=== PATIENT | female | born 1990 | race Caucasian/White ===

== ENCOUNTER 2019-07-27 13:33 | Outpatient (CLI) | payer MEDICAID ==
[~2019-07-27] VITALS: Ht 152.4 cm; Wt 81.8 kg
[~2019-07-27 13:33] MED LIST: FOLI0.4T2 PO; PREN-6 PO
[2019-07-27 14:41] VITALS: Ht 152.4 cm; Wt 81.8 kg
[2019-07-27 14:42] VITALS: BP 127/78; RESP 20
== END 2019-07-27 19:15 | disposition home or self-care (01) ==
LOC: L-D 13:33 → OBT 13:33 → L-D 14:07 → OBT 19:15
PROVIDERS: ATTEND Obstetrics & Gynecology
DX: O62.9 Abnormality of forces of labor, unspecified (principal); Z3A.36 36 weeks gestation of pregnancy
CPT/HCPCS: 36415; 93970; Z7500; G0463

== ENCOUNTER 2019-08-01 03:01 | Inpatient (IN) | payer MEDICAID ==
[2019-08-01] VITALS (8 sets, daily range): BP systolic 103–125; BP diastolic 57–75; PULSE 70–84; RESP 16–19
[~2019-08-01] VITALS: Ht 157.5 cm; Wt 85.6 kg
[2019-08-01] MEDS: LACTATED RINGER'S 1,000 ML IV SCH ×3 (04:23→21:24)
[2019-08-01] MEDS ORDERED: OXYTOCIN 30 UNITS/LR 500 ML IV PRN ×2 (04:30→09:30)
[2019-08-01] MEDS ORDERED: OXYTOCIN 30 UNITS/LR 500 ML IV SCH ×2 (04:30→09:28)
[2019-08-01] MEDS ORDERED: CEFAZOLIN 2 GM/50 ML (PMX) 50 ML IVPB SCH (04:30)
[2019-08-01] MEDS ORDERED: CARBOPROST 250 MCG INJ IM PRN ×2 (04:30→09:30)
[2019-08-01] MEDS ORDERED: MISOPROSTOL 200 MCG TAB PR PRN ×2 (04:30→09:30)
[2019-08-01] MEDS ORDERED: TERBUTALINE 1 MG/ML INJ SC ONE (04:30)
[2019-08-01] MEDS ORDERED: METHYLERGONOVINE 0.2 MG INJ IM PRN ×2 (04:30→09:30)
[2019-08-01] MEDS ORDERED: morphine SULFATE/PF (10 MG/10 ML) INJ ONE (08:04)
[2019-08-01] MEDS ORDERED: KETOROLAC 30 MG INJ ONE (08:04)
[2019-08-01] MEDS ORDERED: METOCLOPRAMIDE 10 MG INJ ONE (08:04)
[2019-08-01] MEDS ORDERED: FAMOTIDINE 20 MG INJ ONE (09:01)
[2019-08-01] MEDS ORDERED: OXYTOCIN 30 UNITS/LR 500 ML IV ONE ×2 (09:03→10:42)
[2019-08-01] MEDS ORDERED: NACL 0.9% 3 ML SYG IV SCH (09:30)
[2019-08-01] MEDS ORDERED: NA PHOSPHATE/BIPHOS 133 ML ENEMA PR PRN (09:30)
[2019-08-01] MEDS ORDERED: LANOLIN HPA 1 PKT TOP PRN (09:30)
[2019-08-01] MEDS ORDERED: KETOROLAC 30 MG INJ IV PRN (11:30)
[2019-08-01] MEDS ORDERED: ONDANSETRON 4 MG INJ IV PRN ×2 (11:30)
[2019-08-01] MEDS ORDERED: DIPHENHYDRAMINE 50 MG INJ IV PRN ×2 (11:30)
[2019-08-01] MEDS ORDERED: NALOXONE (0.4 MG/ML) INJ IV PRN (11:30)
[2019-08-01] MEDS ORDERED: morphine 2 MG INJ IV PRN ×6 (11:30)
[2019-08-02] VITALS: BP 112/57; PULSE 80; RESP 18
[2019-08-02 05:00] VITALS: BP 110/55; PULSE 78; RESP 18
[2019-08-02] MEDS: LACTATED RINGER'S 1,000 ML IV SCH ×2 (05:29→12:03)
[2019-08-02 08:00] VITALS: BP 100/56; PULSE 86; RESP 18
[2019-08-02] MEDS: HYDROCODONE/APAP (5/325) TAB PO PRN ×2 (12:41→21:23)
[2019-08-02 16:13] VITALS: BP 107/64; PULSE 77; RESP 20
[2019-08-02] MEDS: IBUPROFEN 600 MG TAB PO SCH (18:09)
[2019-08-02 19:45] VITALS: BP 101/59; PULSE 73; RESP 20
[2019-08-03] MEDS: IBUPROFEN 600 MG TAB PO SCH ×4 (00:10→17:40)
[2019-08-03 04:39] VITALS: BP 113/74; PULSE 75; RESP 20
[2019-08-03 07:30] VITALS: BP 113/64; PULSE 67; RESP 18
[2019-08-03 15:36] VITALS: BP 119/72; PULSE 71; RESP 20
[2019-08-03 20:00] VITALS: BP 119/88; PULSE 69; RESP 19
[2019-08-04] MEDS: IBUPROFEN 600 MG TAB PO SCH ×4 (00:10→17:58)
[2019-08-04] MEDS: HYDROCODONE/APAP (5/325) TAB PO PRN ×2 (03:27→13:38)
[2019-08-04 04:00] VITALS: BP 119/74; PULSE 93; RESP 19
[2019-08-04 08:40] VITALS: BP 121/67; PULSE 76; RESP 18
[2019-08-04] MEDS ORDERED: DIPHTH/TET/ACEL PERTUSS (ADULT) 0.5 ML VIAL IM* ONE (09:00)
[2019-08-04] MEDS ORDERED: MEASLES,MUMPS,RUBELLA VACCINE INJ SC* ONE (09:00)
[2019-08-04 15:00] VITALS: RESP 18
[2019-08-04 16:58] VITALS: BP 110/68; PULSE 86; RESP 18
[2019-08-04 20:22] VITALS: BP 133/69; PULSE 64; RESP 16
[2019-08-05] MEDS: HYDROCODONE/APAP (5/325) TAB PO PRN ×2 (01:06→10:02)
[2019-08-05 04:00] VITALS: BP 132/83; PULSE 88; RESP 18
[2019-08-05] MEDS: IBUPROFEN 600 MG TAB PO SCH ×3 (06:28→12:00)
[2019-08-05 08:00] VITALS: BP 106/53; PULSE 76; RESP 16
== END 2019-08-05 13:45 | disposition home or self-care (01) | DRG 785 ==
LOC: OBT 03:01 → L-D 03:03 → OBT 03:30 → L-D 08:06 → PP1 12:21
PROVIDERS: ADMIT Obstetrics & Gynecology; ATTEND Obstetrics & Gynecology
PROC: 0UL70ZZ Occlusion of Bilateral Fallopian Tubes, Open Approach (ICD-10-PCS; 2019-08-01)
PROC: 10D00Z1 Extraction of Products of Conception, Low, Open Approach (ICD-10-PCS; principal; 2019-08-01 07:30)
DX: O34.211 Maternal care for low transverse scar from previous cesarean delivery (principal); Z3A.37 37 weeks gestation of pregnancy; Z37.0 Single live birth; Z30.2 Encounter for sterilization
CPT/HCPCS: 76818; 84112; 85025; 85610; 85730; 86592; 86850; 86900; 86901; 87340; 88302; 99464; G0463; J0690; J1885; J2270; J2274; J2590; J2765; J3105; J7120